=== PATIENT | female | born 1980 | race African-American/Black ===

== ENCOUNTER 2020-07-21 04:30 | Emergency (ER) | payer SELFPAY ==
[~2020-07-21] VITALS: Ht 170.2 cm; Wt 82.0 kg
[2020-07-21 04:38] VITALS: BP 128/77
[2020-07-21 05:28] LABS: EOSINOPHILS % 4.5 % (0.0-5.0); HEMOGLOBIN. 9.9 g/dL (12.0-16.0); LYMPHOCYTES % 41.6 % (20.0-50.0); MEAN CORPUSCULAR HEMOGLOBIN 26.1 pg (28.0-32.0); MEAN CORPUSCULAR VOLUME 81.3 fL (80.0-94.0); MEAN PLATELET VOLUME 7.9 fl (7.4-10.4); MONOCYTES % 6.2 % (2.0-8.0); NEUTROPHILS % 46.7 % (40.0-76.0); PLATELET 398 x1000/uL (130-400); RED BLOOD CELL COUNT 3.81 mill/uL (4.2-5.4); RED CELL DISTRIBUTION WIDTH 17.3 % (11.6-14.6)
[2020-07-21 05:31] LABS: CHLORIDE 107 mEq/L (98-107)
[2020-07-21 05:36] LABS: ETHANOL BLOOD < 10 mg/dL
== END 2020-07-21 05:30 | disposition left against medical advice (07) ==
LOC: EDSEX 05:12 → ER 05:12
DX: R53.1 Weakness (principal)
CPT/HCPCS: 36415; 80053; 80320; 85025; 99283; G0480

== ENCOUNTER 2020-08-09 22:37 | Emergency (ER) | payer MEDICAID ==
[~2020-08-09] VITALS: Ht 167.6 cm; Wt 73.0 kg
[2020-08-09 22:56] VITALS: BP 136/69
== END 2020-08-09 23:44 | disposition left against medical advice (07) ==
LOC: ER 22:37
DX: Z53.21 Procedure and treatment not carried out due to patient leaving prior to being seen by health care provider (principal)

== ENCOUNTER 2020-08-10 00:32 | Emergency (ER) | payer MEDICAID, OTHER | END 2020-08-10 01:00 | disposition left against medical advice (07) | LOC: ER 00:32 | DX: Z00.00 Encounter for general adult medical examination without abnormal findings (principal); F91.9 Conduct disorder, unspecified | CPT/HCPCS: 99281 ==